=== PATIENT | female | born 1985 | race Caucasian/White ===

== ENCOUNTER 2016-12-19 13:37 | Emergency (ER) | payer OTHER ==
[~2016-12-19] VITALS: Ht 157.5 cm; Wt 56.7 kg
[2016-12-19 13:53] VITALS: BP 107/74
[2016-12-19] MEDS ORDERED: IBUPROFEN 400 MG TABLET PO ONE (15:00)
[2016-12-19] MEDS ORDERED: IBUPROFEN 400 MG TABLET ONE (15:03)
== END 2016-12-19 15:26 | disposition home or self-care (01) ==
LOC: ER 13:39
DX: M79.641 Pain in right hand (principal); M54.5 Low back pain; M54.2 Cervicalgia; V43.52XA Car driver injured in collision with other type car in traffic accident, initial encounter; Y92.488 Other paved roadways as the place of occurrence of the external cause; Y93.89 Activity, other specified; Y99.8 Other external cause status
CPT/HCPCS: 73030; 73060; 73090; 73130; 99284; A4606; Z7610